=== PATIENT | female | born 1985 | race Caucasian/White ===

== ENCOUNTER 2020-06-16 13:27 | Emergency (ER) | payer OTHER ==
[2020-06-16 14:13] LABS: HEMOGLOBIN 13.1 gm/dl (12.3-15.3); RED BLOOD COUNT 4.15 M/UL (4.00-5.10); WHITE BLOOD COUNT 7.6 K/UL (4.5-11.0)
[2020-06-16 14:37] LABS: BUN/CREATININE RATIO 13 (0-10)
[2020-06-16] MEDS ORDERED: KEPPRA500 MG PO (17:26)
== END 2020-06-16 17:35 | disposition home or self-care (01) ==
LOC: ER1 13:27
PROVIDERS: Physician Assistant Medical
DX: R56.9 Unspecified convulsions (principal)
CPT/HCPCS: 70450; 71045; 80053; 80307; 81001; 82550; 82553; 83605; 83874; 84484; 84703; 85025; 93005; 96365; 99285